=== PATIENT | female | born 1995 ===

== ENCOUNTER 2017-08-21 08:48 | Outpatient (CLI) | payer OTHER ==
--- NOTE | 2017-08-21 12:53 | Ultrasound Report ---
BILATERAL BREAST ULTRASOUND: 08/21/17 08:48:00 CLINICAL: 22 year-old with bilateral palpable lumps. COMPARISON: None. FINDINGS: Ultrasound of the right breast demonstrated 2 contiguous palpable benign cysts at 9:30 o'clock 4 cm from the nipple measuring 4 x 3 x 5 mm and 3 x 3 x 4 mm. This correlates to what the patient is feeling. A benign cyst at 12 o'clock 3 cm from the nipple measures 7 x 4 x 2 mm and correlates with a palpable lump described to be at 12 o'clock. Ultrasound of the upper outer left breast was performed and demonstrated normal fibroglandular structures with no mass cyst or shadowing. IMPRESSION: Right benign cysts at 9:30 o'clock and at 12 o'clock. Negative left breast. BI-RADS 2 - - Benign RECOMMENDATION: Clinical followup and routine mammographic screening based on ACS guidelines.
== END 2017-08-21 08:49 | disposition home or self-care (01) ==
LOC: SPVWC 08:48
PROVIDERS: ATTEND Specialist
DX: N60.01 Solitary cyst of right breast (principal); N63.10 Unspecified lump in the right breast, unspecified quadrant; N63.20 Unspecified lump in the left breast, unspecified quadrant

== ENCOUNTER 2019-08-23 20:02 | Inpatient (IN) | payer MEDICAID ==
[2019-08-23] MEDS ORDERED: TERBUTALINE 1 MG/1 ML INJ SUB-Q PRN (22:45)
[2019-08-23] MEDS ORDERED: ePHEDrine SULFATE 50 MG/1 ML INJ IV PRN (22:45)
--- NOTE | 2019-08-23 22:57 | History and Physical Report ---
History of Present Illness Date of examination: 08/23/19 Date of admission: 08/23/19 20:54 Chief complaint: at 40 weeks, 2 days gestation; scheduled induction of labor. History of present illness: 24 year old presents for scheduled induction of labor at term. Patient states she is a patient of [facility] and records are available. LMP 11/14/18. EDC 08/21/19. Primigravida, uneventful . labs are as follows: O+, antibody screen negative, rubella immune, RPR nonreactive, hepatitis B surface antigen negative, HIV negative, hepatitis C antibody negative, chlamydia negative, gonorrhea negative, GBS negative, 1 hour sugar test 108, hemoglobin electrophoresis normal, quad screen negative, pap smear negative. Past History Past Medical History: no pertinent history Past Surgical History: no surgical history [employer] History: denies: abnormal PAP smear, chlamydia, gonorrhea, hepatitis B, hepatitis C, herpes, HIV, syphilis, trichomonas Family/Genetic History: none Social history: lives with family, full code. denies: smoking, alcohol abuse, prescription drug abuse, IV drug use - Obstetrical History Expected Date of Delivery: 08/21/19 Actual Gestation: 40 Week(s) 3 Day(s) : 1 Para: 0 Hx # Term Pregnancies: 0 Number of Pregnancies: 0 Spontaneous Abortions: 0 Induced : 0 Number of Living Children: 0 Medications and Allergies Allergies Allergy/AdvReac Type Severity Reaction Status Date / Time No Known Allergies Allergy Verified 08/23/19 21:34 Home Medications Medication Instructions Recorded Confirmed Last Taken Type Vitamin PO DAILY 08/23/19 08/23/19 01:30 History Active Meds: Active Medications Ephedrine Sulfate (Ephedrine Sulfate) 10 mg IV Q2M PRN PRN Reason: Hypotension Oxytocin/Sodium Chloride (Pitocin/Ns 20 Unit/1000ml Drip) 20 units in 1,000 mls @ 125 mls/hr IV DIRECT MARIO Lactated Ringer's (Lactated Ringers) 1,000 mls @ 125 mls/hr IV DIRECT MARIO Terbutaline Sulfate (Brethine) 0.25 mg SUB-Q ONCE PRN PRN Reason: Hyperstimulation/Hypertonicity Review of Systems All systems: negative (irregular mild contractions) - Vital Signs Vital signs: Vital Signs Temp Pulse Resp BP Pulse Ox 98.1 F 70 18 111/68 97 08/23/19 21:01 08/23/19 21:01 08/23/19 21:01 08/23/19 21:01 08/23/19 21:01 Temp Pulse Resp BP Pulse Ox 98.1 F 72 18 111/68 97 08/23/19 21:01 08/23/19 22:01 08/23/19 21:01 08/23/19 21:31 08/23/19 22:01 - Physical Exam Cardiovascular: Regular rate, Normal S1, Normal S2, Other (murmur heard) Lungs: Positive: Clear to auscultation Abdomen: Positive: normal appearance, soft. Negative: distention, tenderness, guarding, rigidity Genitourinary (Female): Positive: normal external genitalia, normal perenium. Negative: perineal/vulvar lesions (no lesions seen on careful exam with bright light upon admission) Vagina: Positive: normal moisture Uterus: Positive: enlarged (S=D) Anus/Rectum: Positive: normal perianal skin Extremities: Positive: normal. Negative: tenderness, edema - Obstetrical FHR: category 1 Uterine Contraction Monitor Mode: External Cervical Dilatation: 1 Cervical Effacement Percentage: 10 station: -4, breech Uterine Contraction Pattern: Irregular Uterine Contraction Intensity: Mild Results Result Diagrams: 08/23/19 21:06 All other labs normal. Assessment and Plan A: at 40 weeks, 2 days gestation. Breech presentation of fetus. P: Admit. US to confirm breech presentation. Consulted with Dr. Ramos re: breech presentation of fetus, term who arrived for a scheduled IOL. Dr. Ramos states pt. to have section in the morning. Advised patient re: this plan. Informed patient she should not eat or drink anything after midnight. Continuous EFM until section is performed.
[2019-08-23] MEDS ORDERED: OXYTOCIN 20 UNIT/1000ML DRIP 20 UNITS/1,000 ML BAG IV SCH (23:00)
[2019-08-23 23:10] LABS: Hematocrit 38.4 % (30.3-42.9); Hemoglobin 12.9 gm/dl (10.1-14.3); Mean Corpuscular HGB Conc 34 % (30-34); Mean Corpuscular Volume 96 fl (79-97); Platelet Count 195 K/mm3 (140-440); Red Blood Count 4.02 M/mm3 (3.65-5.03); Red Cell Distribution Width 14.2 % (13.2-15.2)
--- NOTE | 2019-08-23 23:52 | Ultrasound Report ---
Obstetrical ultrasound. 08/23/2019. HISTORY: Evaluate presentation. FINDINGS: A single viable intrauterine is in the breech position. heart tones are 145 bpm. IMPRESSION: position is breech. Signer Name: Suorav Costello MD Signed: 08/23/2019 11:48 PM Workstation Name: [id number]
[2019-08-24] MEDS: LACTATED RINGERS 1,000 ML IV SCH ×2 (01:09→02:09)
[2019-08-24] MEDS ORDERED: METOCLOPRAMIDE 10 MG/2 ML INJ IV ONE (07:29)
[2019-08-24] MEDS ORDERED: ceFAZolin/Water 2 GM/20 ML 2 GM/20 ML SYRINGE IV NR (08:00)
[2019-08-24] MEDS ORDERED: LACTATED RINGERS 1,000 ML IV SCH (08:00)
[2019-08-24] MEDS ORDERED: OXYTOCIN 20 UNIT/1000ML DRIP 20 UNITS/1,000 ML BAG IV SCH ×2 (08:00→11:00)
[2019-08-24] MEDS ORDERED: BICITRA ORAL LIQD 30ML PO ONE (08:00)
[2019-08-24] MEDS ORDERED: FAMOTIDINE 20 MG/2 ML INJ IV ONE (08:00)
--- NOTE | 2019-08-24 08:00 | Anesthesia Consultation ---
Anesthesia Consult and Med Hx Date of service: 08/24/19 - Airway Anesthetic Teeth Evaluation: Good ROM Head & Neck: Adequate Mental/Hyoid Distance: Adequate Mallampati Class: Class II Intubation Access Assessment: Probably Good - Pulmonary Exam CTA: Yes - Cardiac Exam Cardiac Exam: RRR - Pre-Operative Health Status ASA Pre-Surgery Classification: ASA2 Proposed Anesthetic Plan: Spinal - Pulmonary Hx Asthma: No - Cardiovascular System Hx Hypertension: No - Central Nervous System Hx Seizures: No Hx Psychiatric Problems: No - Endocrine Hx Renal Disease: No Hx Hypothyroidism: No Hx Hyperthyroidism: No - Hematic Hx Anemia: No Hx Sickle Cell Disease: No - Other Systems Hx Alcohol Use: No
--- NOTE | 2019-08-24 08:00 | Anesthesia Day of Surgery ---
Anesthesia Day of Surgery - Day of Surgery Patient Examined: Yes Patient H&P Reviewed: Yes Patient is NPO: Yes
[2019-08-24] MEDS ORDERED: SODIUM CHLORIDE 0.9% IRR 1,500 ML BOTTLE IR ONE (09:45)
[2019-08-24] MEDS ORDERED: WATER FOR IRRIG STERILE 1,500 ML BOTTLE IR ONE (09:45)
[2019-08-24] MEDS ORDERED: ONDANSETRON 4 MG/2 ML INJ ONE (10:18)
[2019-08-24] MEDS ORDERED: KETOROLAC 30 MG/1 ML INJ ONE (10:18)
[2019-08-24] MEDS ORDERED: PHENYLEPHRINE/NS 1,000 MCG/10 ML SYRINGE (OR USE) IV ONE (10:18)
[2019-08-24] MEDS ORDERED: OXYTOCIN 10 UNIT/1 ML INJ ONE (10:18)
--- NOTE | 2019-08-24 10:35 | Operative Report ---
Operative Report Operative Report: Date of procedure: 08/24/2019 Pre-operative diagnosis: 1. Intrauterine at 40 3/7 weeks 2. Breech presentation Post-operative diagnosis: Same Procedure name(s): Primary low transverse section Surgeon: Sammy Hilario MD Tennis Player: None Anesthesia: Spinal/Epidural anesthesia by Myron Obrien CRNA EBL: 800 mL's Findings: A 4255 gm female Apgars 9 at 1 minute 9 at 5 minutes. Vimal breech presentation. Nuchal cord 1. Normal uterus. Normal tubes and ovaries bilaterally. Procedure: After the patient was prepped and draped in usual sterile fashion, and after satisfactory level of spinal anesthesia was obtained, the skin knife was used to make a transverse skin incision. The incision was incised down to layer of the fascia, which was nicked in the midline and extended laterally using the Bovie cautery. The rectus muscles were dissected off the rectus fasci a both superiorly and inferiorly. The rectus bellies in the midline, and the peritoneum was entered under direct visualization. The peritoneal incision was extended superiorly and inferiorly. A bladder flap was created and the bladder blade was then placed. The uterus was scored in a curvilinear linear fashion, entered in the midline revealing clear amniotic fluid. The 's Vimal breech was delivered onto the surgical field, followed by the rest of the infant's body, nuchal cord 1 easily reduced and the oropharynx and nasopharynx were bulb suctioned. The cord was doubly clamped and cut and the was handed to the awaiting respiratory team. Cord blood was then obtained. The placenta was manually removed from the uterus, and the uterus removed from its normal anatomical position. After gentle uterine lavage, the incision was inspected and found to be without extensions. It was then closed in 2 layers using 0 Vicryl suture in a running interlocking fashion, the second layer imbricating the first. After good hemostasis was achieved, copious amounts or irrigation was performed, and the gutters were suctioned free of blood and blood clots. The Tisseal sealant was sprayed across the uterine incision, and excellent hemostasis was assured. The uterus was then returned to its normal anatomical position, and the peritoneum was re-approximated using 3-0 Vicryl suture in a running interlocking fashion, and then the rectus muscles were re-approximated using 3-0 Vicryl suture in a [id number] configuration. The fascia was then re-approximated using 0 Vicryl suture in running interlocking fashion. The subcutaneous layer was made hemostatic using Bovie cautery, and the skin edges re-approximated using 4-0 Vicryl suture in a sub- cuticular fashion. Patient tolerated the procedure well was transported to recovery in stable condition.
[2019-08-24] MEDS ORDERED: LANOLIN/ZINC/DIMETHICONE (LANSINOH) 7 GM TP PRN (10:36)
[2019-08-24] MEDS ORDERED: SIMETHICONE 80 MG CHEW TAB PO PRN (10:36)
[2019-08-24] MEDS ORDERED: ONDANSETRON 4 MG/2 ML INJ IV PRN (10:36)
[2019-08-24] MEDS ORDERED: WITCH HAZEL/ GLYCERIN PAD TP PRN (10:36)
[2019-08-24] MEDS ORDERED: HYDROcodone/ACETAMINOPHEN 5-325 MG TAB PO PRN (10:36)
[2019-08-24] MEDS ORDERED: NALOXONE 0.4 MG/1 ML INJ IV PRN (10:36)
[2019-08-24] MEDS ORDERED: MAGNESIUM HYDROXIDE (MOM) ORAL LIQD UDC PO PRN (10:36)
[2019-08-24] MEDS ORDERED: ACETAMINOPHEN 325 MG TAB PO PRN (10:36)
[2019-08-24] MEDS ORDERED: NalbUPHINE 10 MG/1 ML INJ IV PRN (10:48)
--- NOTE | 2019-08-24 10:48 | Post Anesthesia Evaluation ---
- Post Anesthesia Evaluation Patient Participated: Yes Airway Patent: Yes Stable Respiratory Function: Yes Nausea/Vomiting: No Temp > 96.8F: Yes Pain Manageable: Yes Adequeate Hydration: Yes Anesthesia Complications: No Block Receding Appropriately: Yes
[2019-08-24] MEDS ORDERED: ACETAMINOPHEN 500 MG TAB PO SCH (11:00)
[2019-08-24] MEDS: KETOROLAC 30 MG/1 ML INJ IV SCH ×2 (12:45→18:03)
[2019-08-24] MEDS: KETOROLAC 30 MG/1 ML INJ IV PRN ×2 (14:51→20:56)
[2019-08-24] MEDS: ceFAZolin/NS 1 GM/50 ML 1 GM/50 ML BAG IV SCH (16:32)
[2019-08-24] MEDS: D5W/LACTATED RINGERS 1,000 ML IV SCH (17:56)
[2019-08-24] MEDS: oxyCODONE /ACETAMINOPHEN 5-325MG TAB PO PRN (19:54)
[2019-08-24 22:09] LABS: Hematocrit 31.6 % (30.3-42.9); Hemoglobin 10.6 gm/dl (10.1-14.3)
[2019-08-25] MEDS: D5W/LACTATED RINGERS 1,000 ML IV SCH (00:12)
[2019-08-25] MEDS: ceFAZolin/NS 1 GM/50 ML 1 GM/50 ML BAG IV SCH (00:12)
[2019-08-25] MEDS: KETOROLAC 30 MG/1 ML INJ IV SCH ×2 (00:44→06:04)
[2019-08-25] MEDS ORDERED: TETANUS,DIPH,PERTUSS(ACELL) VACCINE 0.5 ML SYRINGE IM ONE (06:00)
[2019-08-25] MEDS ORDERED: MEASLES, MUMPS & RUBELLA 12,500 UNIT/0.5 ML VACCINE SUB-Q ONE (06:00)
[2019-08-25] MEDS ORDERED: FERROUS SULFATE 325 MG TAB PO SCH (10:00)
[2019-08-25] MEDS ORDERED: PRENATAL VIT27-FE FUMARATE-FOLIC ACID VIT TAB PO SCH (10:00)
[2019-08-25] MEDS: IBUPROFEN 800 MG TAB PO PRN ×2 (13:10→23:19)
--- NOTE | 2019-08-25 14:03 | Progress Note ---
Assessment and Plan - Patient Problems (1) Status post Onset Date: 08/25/19 Current Visit: Yes Status: Resolved Plan to address problem: A: S/P C Section - POD #1 Doing well Asymptomatic anemia - stable P: Continue RPOC Anticipate discharge in 24-48hrs (2) Acute blood loss anemia Onset Date: 08/25/19 Current Visit: Yes Status: Resolved Subjective - Subjective Date of service: 08/25/19 Principal diagnosis: s/p Primary C Section - POD #1 Interval history: Pt is feeling well without complaints. Bleeding improved. She is tolerating a reg diet without nausea or vomiting. Patient reports: appetite normal, voiding normally, pain well controlled, flatus, ambulating normally, no dizzy ambulation, no nauseated [place]: doing well, nursing well, bottle feeding Objective - Vital Signs Latest vital signs: Vital Signs Temp Pulse Resp BP 08/25/19 08:12 98.7 F 63 18 88/60 08/25/19 04:30 98.4 F 71 18 108/60 08/25/19 00:00 98.6 F 67 18 118/74 08/24/19 20:00 98.7 F 74 18 101/62 08/24/19 16:20 98.4 F 58 L 18 108/55 Intake and Output 08/24/19 08/25/19 08/25/19 22:59 06:59 14:59 Intake Total 370 983.333 570 Output Total 500 2200 600 Balance -130 -1216.667 -30 Intake: IV 50 783.333 ANCEF/NS 1 GM/50 ML 1 gm 50 In 50 ml @ 100 mls/hr IV Q8H MARIO Rx#:[id number] D5lr 1,000 ml @ 125 mls/ 783.333 hr IV DIRECT MARIO Rx#: [id number] Oral 320 200 570 Output: Urine 500 2200 600 Indwelling Catheter 500 700 Uretheral (Vazquez) 700 Void 800 600 Other: Total, Intake Amount 320 200 210 Total, Output Amount 500 800 600 # Voids Void 0 1 2 - Exam Abdomen: Present: normal appearance, soft Uterus: Present: normal, firm, fundal height below umbilicus Extremities: Present: normal Incision: Present: normal, dry, intact, dressed - Labs Labs: Laboratory Tests 08/23/19 08/23/19 08/23/19 21:06 21:06 21:06 WBC 6.6 RBC 4.02 Hgb 12.9 Hct 38.4 MCV 96 MCH 32 MCHC 34 RDW 14.2 Plt Count 195 Syphilis IgG Antibody Non-reactive Blood Type O POSITIVE Antibody Screen Negative 08/24/19 21:50 WBC RBC Hgb 10.6 Hct 31.6 D MCV MCH MCHC RDW Plt Count Syphilis IgG Antibody Blood Type Antibody Screen
[2019-08-25] MEDS: oxyCODONE /ACETAMINOPHEN 5-325MG TAB PO PRN (17:25)
[2019-08-26] MEDS: KETOROLAC 30 MG/1 ML INJ IV SCH ×2 (03:12→06:40)
[2019-08-26 08:46] VITALS: BP 105/64
[2019-08-26] MEDS: oxyCODONE /ACETAMINOPHEN 5-325MG TAB PO PRN (09:05)
--- NOTE | 2019-08-26 10:56 | Progress Note ---
Assessment and Plan - Patient Problems (1) Status post Onset Date: 08/25/19 Current Visit: Yes Status: Resolved Plan to address problem: A: S/P C Section - POD #2 Doing well Asymptomatic anemia - stable P: May go home today. (2) Acute blood loss anemia Onset Date: 08/25/19 Current Visit: Yes Status: Resolved Subjective - Subjective Date of service: 08/26/19 Principal diagnosis: s/p Primary C Section - POD #2 Interval history: Pt is feeling well without complaints. She is tolerating a reg diet without nausea or vomiting, ambulating and voiding without difficulty. She wants to go home today. Patient reports: appetite normal, voiding normally, pain well controlled, flatus, ambulating normally, no dizzy ambulation, no nauseated [place]: doing well, nursing well, bottle feeding Objective - Vital Signs Latest vital signs: Vital Signs Temp Pulse Resp BP Pulse Ox 08/26/19 08:04 98.2 F 56 L 18 105/64 08/26/19 00:10 98.6 F 57 L 18 98/46 96 08/25/19 15:30 98.4 F 57 L 20 155/59 Intake and Output 08/25/19 08/26/19 08/26/19 22:59 06:59 14:59 Intake Total 440 240 480 Output Total 800 Balance -360 240 480 Intake: Oral 440 240 480 Output: Urine 800 Void 800 Other: Total, Intake Amount 120 120 480 Total, Output Amount 800 # Voids Void 1 - Exam Breasts: Present: deferred Abdomen: Present: normal appearance, soft Uterus: Present: normal, firm, fundal height below umbilicus Extremities: Present: normal Incision: Present: normal, dry, intact
--- NOTE | 2019-08-26 11:39 | Discharge Summary ---
Providers - Providers Date of Admission: 08/23/19 20:54 Date of discharge: 08/26/19 Attending physician: NIK PHILLIPS Primary care physician: NIK PHILLIPS Hospitalization Reason for admission: section, IUP at term, other (Breech presentation) Delivery: Procedure: section, primary low transverse Episiotomy: none Laceration: none Incision: normal, dry, intact Other procedures: none complications: none Discharge diagnosis: IUP at term delivered baby: female Hospital course: Pt is a 24 year old HF EDC 08/21/19 EGA 40 3/7 weeks who presented for scheduled induction of labor at term. She received care at [facility] and records were available. However her baby was breech on presentation and thus was delivered by an uncomplicated C Section. Post operative course was unremarkable. By POD #2 she was tolerating a reg diet without nausea or vomiting, ambulating and voiding without difficulty. She was therefore discharged to home on POD #2 in stable condition. Condition at discharge: Good Disposition: DC-01 TO HOME OR SELFCARE - Discharge Diagnoses (1) Status post Status: Resolved (2) Acute blood loss anemia Status: Resolved Plan - Discharge Medications Prescriptions: Ferrous Sulfate [Feosol 325 MG tab] 325 mg PO BID #60 tablet Ibuprofen [Motrin 800 MG tab] 800 mg PO Q6H PRN #30 tablet PRN Reason: Pain, Mild (1-3) oxyCODONE /ACETAMINOPHEN [Percocet 5/325 mg] 1 tab PO Q6H PRN #30 tablet PRN Reason: Pain, Moderate (4-6) Vit-Fe Fumar-FA [ Vitamin] 1 each PO QDAY #30 tablet - Provider Discharge Summary Activity: routine, no sex for 6 weeks, no heavy lifting 4 weeks, no strenuous exercise Diet: routine Instructions: routine Additional instructions: [] Smoking cessation referral if applicable(refer to patient education folder for contact #) [] Refer to [facility] Booklet Call your doctor immediately for: * Fever > 100.5 * Heavy vaginal bleeding ( >1 pad per hour) * Severe persistent headache * Shortness of breath * Reddened, hot, painful area to leg or breast * Drainage or odor from incision. * Keep incision clean and dry at all times and follow doctor's instructions regarding bathing/showering - Follow up plan Follow up: ELLIE MONROE NP [Referring] - 6 Weeks NIK PHILLIPS MD [Primary Care Provider] - 14 Days Forms: [facility] Discharge Summary
[2019-08-26] MEDS ORDERED: FLU VACC QUAD 2019-20 (3 YR UP)/PF 60 MCG/0.5 ML SYRINGE IM ONE (14:00)
== END 2019-08-26 15:15 | disposition home or self-care (01) | DRG 765 ==
LOC: TRG 20:02 → LD 20:54 → OB 08-24 12:53
PROVIDERS: ADMIT Obstetrics & Gynecology; ATTEND Obstetrics & Gynecology
PROC: 10D00Z1 Extraction of Products of Conception, Low, Open Approach (ICD-10-PCS; principal; 2019-08-24)
PROC: 3E0234Z Introduction of Serum, Toxoid and Vaccine into Muscle, Percutaneous Approach (ICD-10-PCS; 2019-08-25)
DX: O32.1XX0 Maternal care for breech presentation, not applicable or unspecified (principal); D62 Acute posthemorrhagic anemia; O99.02 Anemia complicating childbirth; Z3A.40 40 weeks gestation of pregnancy; Z37.0 Single live birth; Z23 Encounter for immunization
CPT/HCPCS: 36415; 76815; 85014; 85018; 85027; 86592; 86850; 86900; 86901; 90686; G0378; A6250; C9250; J0690; J1885; J2370; J2405; J2590; J2765; J3105; J7120; J7121